=== PATIENT | female | born 1990 | race American Indian/Alaskan Native ===

== ENCOUNTER 2022-01-09 15:24 | Emergency (ER) | payer MEDICARE ==
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
== END 2022-01-09 19:00 | disposition left against medical advice (07) ==
LOC: ED 15:24
DX: Z11.3 Encounter for screening for infections with a predominantly sexual mode of transmission (principal)
CPT/HCPCS: 99281